=== PATIENT | male | born 1940 | race Caucasian/White ===

== ENCOUNTER 2018-11-14 13:05 | Emergency (ER) | payer MEDICARE, OTHER ==
--- NOTE | 2018-11-14 14:02 | EDM.PDOC ---
ED HPI GENERAL MEDICAL PROBLEM - General Chief Complaint: Bite:Animal, Insect Stated Complaint: TICK BITE Time Seen by Provider: 11/14/18 13:35 Source of Information: Reports: Patient History Limitations: Reports: No Limitations - History of Present Illness INITIAL COMMENTS - FREE TEXT/NARRATIVE: Patient is a 78 year old male who presents to the ED today with his daughter with increased bruising to left upper thigh. Patient was mowing the yard two days ago, thinks he may have brushed something of his left thigh. Patient uncertain if there was a bee or tick or any insect, states he may have gotten hit by a branch. Denies any systemic symptoms such as fever/chills/nausea/ vomiting/joint pain. Patient does have a hx of Lyme's Disease and is concerned that this may be related to it. Patient denies any pain to area, not on blood thinners. Onset: Gradual Duration: Day(s): (2) - Related Data Allergies Allergy/AdvReac Type Severity Reaction Status Date / Time No Known Allergies Allergy Verified 11/14/18 14:05 Home Meds: Home Meds Levothyroxine 100 mcg PO ACBREAKFAST 06/03/17 [History] Lisinopril 30 mg PO DAILY 06/03/17 [History] ED ROS GENERAL - Review of Systems Review Of Systems: ROS reveals no pertinent complaints other than HPI. ED EXAM, ANIMAL BITE - Physical Exam Exam: See Below Exam Limited By: No Limitations General Appearance: Alert, WD/WN, No Apparent Distress Head: Atraumatic, Normocephalic Neck: Normal Inspection, Supple, Non-Tender Respiratory/Chest: No Respiratory Distress Cardiovascular: Normal Peripheral Pulses, Regular Rate, Rhythm Back Exam: Normal Inspection Extremities: Normal Inspection, Normal Range of Motion Neurological: Alert, Oriented, CN II-XII Intact Psychiatric: Normal Affect, Normal Mood Skin Exam: Ecchymosis (left upper inner thigh, approx 5 cm in diameter with small tail of what appears to be petechial in nature, very light erythema spreading medially, no warmth to area) Lymphatic: No Adenopathy Course - Vital Signs Last Recorded V/S: Last Vital Signs Temp 36.6 C 11/14/18 13:26 Pulse 69 11/14/18 13:26 Resp 15 11/14/18 13:26 BP 168/101 H 07/27/19 13:26 Pulse Ox 97 11/14/18 13:26 Priyank is a 78 year old male who presents with bruising and increasing redness to left thigh. Uncertain what the history is for sure, may be related to an insect bite, may be related to being struck by a branch. Patient otherwise hemodynamically stable here and afebrile. Patient's presentation consistent with bruising with ? small area of petechia. No significant warmth to area. Blood work including CBC, CMP and CRP obtained as well as TICK panel. Panel pending but remaining blood work reassuring with normal white count, hgb, platelet count and CRP. NO new meds to indicate a new vasculitis and too focal for this. Will start patient on Doxycycline to cover for any early cellulitis as well as unusual Tick presentation although this not consistent with erythema migrans, given hx of Lyme and age will cover until blood tests have returned. Patient encouraged to follow up in clinic this week, reasons to return to the ED discussed. Patient agreeable to plan of care and discharged in stable condition. - Orders/Labs/Meds Orders: Active Orders 24 hr Category Date Time Status BABESIA MICROTI ANTIBODY PANEL Urgent Lab 11/14/18 13:50 Received HUMAN GRANULOCYTIC MAYRA-HGE Urgent Lab 11/14/18 14:00 Received LYME, TOTAL AB TEST/REFLEX Urgent Lab 11/14/18 13:50 Received Labs: Laboratory Tests 11/14/18 11/14/18 11/14/18 Range/Units 13:42 13:50 13:50 WBC 6.4 (4.5-11.0) K/uL RBC 4.43 (4.30-5.90) M/uL Hgb 14.2 (12.0-15.0) g/dL Hct 42.0 (40.0-54.0) % MCV 95 (80-98) fL MCH 32 H (27-31) pg MCHC 34 (32-36) % Plt Count 172 (150-400) K/uL Neut % (Auto) 62 (36-66) % Lymph % (Auto) 26 (24-44) % [place] % (Auto) 10 H (2-6) % Eos % (Auto) 2 (2-4) % Baso % (Auto) 0 (0-1) % PT 10.9 (9.5-12.0) sec INR 1.01 (0.80-1.20) APTT 27.0 (27.0-36.0) sec Sodium 139 L (140-148) mmol/L Potassium 4.3 (3.6-5.2) mmol/L Chloride 102 (100-108) mmol/L Carbon Dioxide 30 (21-32) mmol/L Anion Gap 11.3 (5.0-14.0) mmol/L BUN 17 (7-18) mg/dL Creatinine 0.9 (0.8-1.3) mg/dL Est Cr Clr Drug Dosing 65.47 mL/min Estimated GFR (MDRD) > 60 (>60) Glucose 94 (74-106) mg/dL Calcium 8.8 (8.5-10.1) mg/dL Total Bilirubin 0.6 (0.2-1.0) mg/dL AST 21 (15-37) U/L ALT 25 (12-78) U/L Alkaline Phosphatase 114 (46-116) U/L C-Reactive Protein 0.01 (0.0-0.3) mg/dL Total Protein 7.7 (6.4-8.2) g/dL Albumin 3.7 (3.4-5.0) g/dL Globulin 4.0 H (2.3-3.5) g/dL Albumin/Globulin Ratio 0.9 L (1.2-2.2) Departure - Departure Time of Disposition: 15:00 Disposition: Home, Self-Care 01 Condition: Good Clinical Impression: Cellulitis Qualifiers: Site of cellulitis: extremity Site of cellulitis of extremity: lower extremity Laterality: left Qualified Code(s): L03.116 - Cellulitis of left lower limb Contusion Qualifiers: Encounter type: initial encounter Contusion area: thigh Laterality: left Qualified Code(s): S70.12XA - Contusion of left thigh, initial encounter - Discharge Information Instructions: Cellulitis, Adult, Contusion, [id number] Referrals: Chema Lucia Sr, MD [Primary Care Provider] - Forms: ED Department Discharge Additional Instructions: Start doxycycline today, take as directed for 10 days, if tick testing returns negative can stop at that time. Follow up in clinic this week if symptoms persist. Return here with any worsening symptoms or concerns. - My Orders Last 24 Hours: My Active Orders 11/14/18 13:50 BABESIA MICROTI ANTIBODY PANEL Urgent LYME, TOTAL AB TEST/REFLEX Urgent 11/14/18 14:00 HUMAN GRANULOCYTIC MAYRA-HGE Urgent - Assessment/Plan Last 24 Hours: My Active Orders 11/14/18 13:50 BABESIA MICROTI ANTIBODY PANEL Urgent LYME, TOTAL AB TEST/REFLEX Urgent 11/14/18 14:00 HUMAN GRANULOCYTIC MAYRA-HGE Urgent
[2018-11-18 11:09] LABS: LYME IGG/IGM AB <0.91 ISR (0.00-0.90)
[2018-11-19 13:11] LABS: BABESIA MICROTI IGG <1:10 (Neg:<1:10); BABESIA MICROTI IGM <1:10 (Neg:<1:10)
[2018-11-19 14:08] LABS: HGE IGG TITER Negative (Neg:<1:64); HGE IGM TITER Negative (Neg:<1:20)
== END 2018-11-14 14:58 | disposition home or self-care (01) ==
LOC: JP.ED 13:05
DX: S70.12XA Contusion of left thigh, initial encounter (principal); L03.116 Cellulitis of left lower limb; X58.XXXA Exposure to other specified factors, initial encounter
CPT/HCPCS: 36415; 80053; 85025; 85610; 85730; 86140; 86618; 86666; 86753; 99281; 99283

== ENCOUNTER 2023-08-09 17:01 | Emergency (ER) | payer MEDICARE ==
[2023-08-09] MEDS: Bacitracin Oint 1 GM U/D Packet TOP ONE (19:27)
[2023-08-09] MEDS: Diphtheria,Pertussis(Acell),Tetanus Vaccine 0.5 ML Syringe IM ONE (19:36)
== END 2023-08-09 19:45 | disposition home or self-care (01) ==
LOC: JP.ED 17:01
DX: S00.83XA Contusion of other part of head, initial encounter (principal); S09.90XA Unspecified injury of head, initial encounter; I10 Essential (primary) hypertension; E03.9 Hypothyroidism, unspecified; Z23 Encounter for immunization; Z79.899 Other long term (current) drug therapy; W01.198A Fall on same level from slipping, tripping and stumbling with subsequent striking against other object, initial encounter
CPT/HCPCS: 70450; 90471; 90715; 99283-25